=== PATIENT | female | born 1995 | race Two or more races ===

== ENCOUNTER 2024-05-05 17:46 | Emergency (ER) | payer MEDICAID, OTHER ==
[~2024-05-05] VITALS: Ht 157.5 cm; Wt 56.5 kg
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
[2024-05-05] MEDS ORDERED: CYCL-838 PO (20:06)
[2024-05-05] MEDS ORDERED: ACET650T12 PO (20:06)
--- NOTE | 2024-05-05 20:57 | DVH ---
CLINICAL INDICATION: r/o fracture TECHNIQUE: XY L 1ST TOE XRAY Comparison: None FINDINGS: No osseous or joint abnormality with no fracture or dislocation. Joint spaces are normal. IMPRESSION: No abnormality.
[2024-05-05 22:19] VITALS: BP 123/73; TEMP 98.1
[2024-05-05 22:22] VITALS: PULSE 97; RESP 22; O2SAT 97
== END 2024-05-05 22:23 | disposition home or self-care (01) ==
LOC: ER 17:46
DX: S00.81XA Abrasion of other part of head, initial encounter (principal); S10.81XA Abrasion of other specified part of neck, initial encounter; S96.892A Other specified injury of other specified muscles and tendons at ankle and foot level, left foot, initial encounter; S40.212A Abrasion of left shoulder, initial encounter; S20.412A Abrasion of left back wall of thorax, initial encounter; S50.311A Abrasion of right elbow, initial encounter; S90.811A Abrasion, right foot, initial encounter; J32.0 Chronic maxillary sinusitis; X58.XXXA Exposure to other specified factors, initial encounter; Y93.39 Activity, other involving climbing, rappelling and jumping off; Y92.89 Other specified places as the place of occurrence of the external cause; Y99.8 Other external cause status
CPT/HCPCS: 70450; 72125; 73660

== ENCOUNTER 2025-01-13 02:55 | Emergency (ER) | payer MEDICAID ==
[~2025-01-13] VITALS: Ht 154.9 cm; Wt 55.5 kg
[~2025-01-13 02:55] MED LIST: ACET650T12 PO; CYCL-838 PO
[2025-01-13 03:22] VITALS: BP 111/87; PULSE 74; RESP 16; TEMP 98.5; O2SAT 97
[2025-01-13] MEDS ORDERED: CIPR1SUS8 LEFT EAR (03:23)
[2025-01-13] MEDS ORDERED: AMOX875T4 PO (03:23)
[2025-01-13] MEDS ORDERED: ACET500T58 PO (03:23)
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
[2025-01-13] MEDS: cefTRIAXone SOD 1,000 MG VL IM ONE (03:37)
[2025-01-13] MEDS: LIDOCAINE 1% HCL (LOCAL ANESTH.) INJ 20ML MDV ID ONE (03:37)
== END 2025-01-13 03:43 | disposition home or self-care (01) ==
LOC: ER 02:55
DX: H72.92 Unspecified perforation of tympanic membrane, left ear (principal)
CPT/HCPCS: 96372; 99283; J0696; J2003